=== PATIENT | female | born 1930 | race Hispanic/Latino ===

== ENCOUNTER 2019-04-29 10:52 | Emergency (ER) | payer OTHER ==
[~2019-04-29] VITALS: Ht 160 cm; Wt 66.2 kg
[~2019-04-29 10:52] MED LIST: ASPIR 8181 MG PO; KEFLEX500 MG PO; LEVOTHYROXINE50 MCG PO; NORVASC5 MG PO; PAXIL10 MG PO; PEPCID20 MG PO; PLAVIX75 MG PO; PRAVASTATIN SOD80 MG PO; TOPROL XL50 MG PO; TYLENOL325 MG PO; ULTRAM 50MG50 MG PO; [UNRECOGNIZED DRUG - REMARK]
--- OUTSIDE RECORDS SUMMARY | 2019-04-29 10:55 | XMS REPORT ---
Author Author [facility] Address Unknown Phone Unavailable Care Team Providers Care Catering Attendant Name Role Phone Unavailable Unavailable Problems This patient has no known problems. Allergies, Adverse Reactions, Alerts This patient has no known allergies or adverse reactions. Medications This patient has no known medications. Results Test Description Test Time Test Comments Text Results Atomic Results Result Comments XR Hand Complete 3+ Views Right 2018-07-04 06:26:14 Patient: JULIANNE LANCASTER Date/Time07/04/2018 05:54 CDTReason for ExamInjuryReportXR Hand Complete 3+ Views RightLocation:[id number] hours services provided 07/04/2018 6:23 AMIndication:InjuryComparison:None availableFindings:Narrowing of the first metacarpal joint is present consistent with degenerative osteoarthrosis. No acute fracture or dislocation is seen. Osteopenia is noted. No radiopaque foreign body.Impression: No acute fracture or dislocation. Final Dictated by: MD Maddox Dennis PDictated DT/TM: 07/04/2018 6:23 amSigned by: MD Maddox Dennis PSigned (Electronic Signature): 07/04/2018 6:26 am
--- OUTSIDE RECORDS SUMMARY | 2019-04-29 10:56 | XMS REPORT ---
Author Organization Unknown Address [address] [place] [address] Phone [phone] Care Team Providers Care [place] Cook Name Role Phone NATHALIE "HARJEET" LEONIDES STATON 3 [phone] RADHA EL 62 Unavailable PERCY PAVON MD 118 [phone] DANIELLE HOLLIDAY MD 82 [phone] JULIANNE BURT MD 111 [phone] Allergies Code Code System Name Reaction Severity Status Onset 2670 RxNorm Codeine Active 03/09/2016 Penicillins Active 03/09/2016 Sulfa (Sulfonamide Antibiotics) Active 03/09/2016 Medications Name Status Start Date Stop Date amlodipine 10 mg tablet Take 1 tablet every day by oral route. Active Not available Aspir-81 1 qd Completed 11/22/2017 Asprin Ec Low Dose 81 mg tablet,delayed release Take 1 tablet every day by oral route. Active Not available ciprofloxacin 250 mg tablet Completed 07/15/2016 clopidogrel 75 mg tablet Completed 09/09/2016 diclofenac 1 % topical gel Completed 09/09/2016 donepezil 10 mg tablet Completed 06/17/2017 donepezil 5 mg tablet Active Not available fluoxetine 10 mg capsule Completed 09/09/2016 furosemide 20 mg tablet TAKE 1 TABLET BY MOUTH ONCE DAILY Active Not available furosemide 40 mg tablet Completed 07/15/2016 gabapentin 300 mg capsule TAKE ONE CAPSULE BY MOUTH ONCE DAILY AT BEDTIME Active Not available hydralazine 100 mg tablet Completed 09/09/2016 hydrochlorothiazide 25 mg tablet Completed 09/09/2016 Kenalog 40 mg/mL suspension for injection Injected 2 cc intra-articularly into the R knee Completed 11/02/2016 levothyroxine 0.5mg Completed 06/17/2017 levothyroxine 50 mcg tablet Active Not available lidocaine 10 mg/mL (1 %) injection solution injected 1 cc intra-articularly in to the R knee Completed 11/02/2016 losartan 100 mg tablet Completed 09/09/2016 losartan 25 mg tablet Completed 09/09/2016 meclizine 25 mg tablet Completed 09/09/2016 megestrol 625 mg/5 mL oral suspension Take 5 mL every 24 hours by oral route for 30 days. Completed 09/05/2017 meloxicam 15 mg tablet Completed 07/14/2017 meloxicam 7.5 mg tablet Completed 09/05/2017 metoprolol succinate ER 25 mg tablet,extended release 24 hr Completed 09/09/2016 metoprolol succinate ER 50 mg tablet,extended release 24 hr Completed 09/09/2016 naproxen 500 mg tablet Completed 11/02/2016 ondansetron 4 mg disintegrating tablet Completed 06/17/2017 pantoprazole 40 mg tablet,delayed release Completed 09/09/2016 potassium chloride ER 20 mEq tablet,extended release(part/cryst) Active Not available pravastatin 20 mg tablet Take 1 tablet every day by oral route. Active Not available sertraline 25 mg tablet Completed 11/22/2017 sertraline 50 mg tablet Take 1 tablet every day by oral route for 30 days. Completed 09/06/2017 tramadol 50 mg tablet Active Not available triamcinolone 0.1 % topical ointment and dimethicone 5 % topical cream Completed 06/17/2017 triamcinolone acetonide 0.1 % topical cream Completed 05/04/2017 Tylenol Arthritis Pain 650 mg tablet,extended release Take 2 tablets every 8 hours by oral route for 10 days. Completed 04/28/2017 Vitamin D2 50,000 unit capsule Take 1 capsule every week by oral route. Completed 11/22/2017 Vitamin D3 1,000 unit tablet Take 1 tablet every day by oral route. 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 08/20/2015 History Long-term Current Use of Anticoagulant Unknown 08/20/2015 History Social Problem Not Due to a Mental Disorder Unknown 08/20/2015 History Clinical Finding Unknown 08/20/2015 History Chronic Kidney Disease Stage 5 Unknown 10/24/2015 History Hypertensive End Stage Renal Disease Unknown 11/24/2015 History 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 [address] [place] [id number] (Work Place) 07/14/2017 Bone Density, Dual Photon Absorptiometry [facility] ([facility] Imaging) [address] [place], [place] [id number] (Work Place) 09/05/2017 Electrocardiogram [facility] [address] [facility] [address] [place] [address] (Work Place) 12/30/2017 MRI, Shoulder, W/o Contrast [facility] ([facility]) [address] [place], [place] [id number] (Work Place) 12/30/2017 XR, Shoulder, 2 or More View [facility] ([facility]) [address] [place] [address] (Work Place) Notes: 03/09/2016: S/P appendectomy; Surgery Date: 40 years ago S/P Cholecystectomy; Surgery Date: 40 years ago S/P Oophorectomy; Surgery Date: 2001 S/P BENITO; Surgery Date: 1967 S/P shoulder surgery bilaterally; Surgery Date: pace maker; Surgery Date: 2012 Angioplasty Lower Extremities; Surgery Date: 2012 Lab Results Date Name Specimen Result Interpretation Description Value Range Status Address 09/05/2017 Prealbumin, Serum Normal Prealbumin 24 mg/dL 17-34 mg/dL Final [facility]: [address] [place] [address], [place] 09/05/2017 Carcinoembryonic Ag, Quant, Serum or Plasma Normal Cea 1.3 NG/mL see note: NG/mL Final [facility]: [address] [place] [address], [place] 09/05/2017 TSH, Serum or Plasma High Tsh 8.59 mIU/L 0.40-4.50 mIU/L Final [facility]: [address], [place] 09/05/2017 T4, Free, Serum Normal T4, Free 1.2 NG/dL 0.8-1.8 NG/dL Final [facility] [address] [facility]2017 Vitamin D, 25-Hydroxy, Total, Serum Low Vitamin D,25-Oh,total,ia 12 NG/mL 30-100 NG/mL Final [facility] [address] [facility]2017 CBC W/ Auto Diff Normal White Blood Cell Count 8.0 thousand/uL 3.8-10.8 thousand/uL Final [facility]: [address] Normal Red Blood Cell Count 4.57 million/uL 3.80-5.10 million/uL Final [facility]: [address] Normal Hemoglobin 13.3 g/dL 11.7-15.5 g/dL Final [facility]: [address] Whittington [address] Normal Hematocrit 41.3 % 35.0-45.0 % Final [facility]: [address] Wh[address] Normal Mcv 90.4 fL 80.0-100.0 fL Final [facility]: [address] Normal Mch 29.1 pg 27.0-33.0 pg Final [facility]: [address] Wh[address] Normal Mchc 32.2 g/dL 32.0-36.0 g/dL Final [facility]: [address] Wh[address] Normal Rdw 13.2 % 11.0-15.0 % Final [facility]: [address] Wh[address] Normal Platelet Count 168 thousand/uL 140-400 thousand/uL Final [facility]: [address] High Mpv 12.9 fL 7.5-12.5 fL Final [facility] [address] [facility] Absolute Neutrophils 5072 cells/uL 0446-4341 cells/uL Final [facility]: [address] Wh[address] Normal Absolute Lymphocytes 2272 cells/uL 850-3900 cells/uL Final [facility]: [address], [place] Normal Absolute Monocytes 480 cells/uL 200-950 cells/uL Final [facility]: [address], [place] Normal Absolute Eosinophils 112 cells/uL 15-500 cells/uL Final [facility]: [address] Valdivia [facility], [place] Normal Absolute Basophils 64 cells/uL 0-200 cells/uL Final [facility]: [address] [place] [address], [place] Normal Neutrophils 63.4 % Final [facility]: [address] [place] [address], [place] Normal Lymphocytes 28.4 % Final [facility]: [address] [place] [address], [place] Normal Monocytes 6.0 % Final [facility]: [address] [place] [address], [place] Normal Eosinophils 1.4 % Final [facility]: [address] [place] [address], [place] Normal Basophils 0.8 % Final [facility]: [address] 07/18/2017 TSH, Serum or Plasma High Tsh 4.84 mIU/L 0.40-4.50 mIU/L Final [facility]: [address] 07/18/2017 CMP, Serum or Plasma Normal Glucose 84 mg/dL 65-99 mg/dL Final [facility]: [address] Normal Urea Nitrogen (BUN) 24 mg/dL 7-25 mg/dL Final [facility]: [address] High Creatinine 1.44 mg/dL 0.60-0.88 mg/dL Final [facility]: [address] Low eGFR Non-afr. [place] 33 mL/min/1.73m2 > or=60 mL/min/1.73m2 Final [facility]: [address] Low eGFR 38 mL/min/1.73m2 > or=60 mL/min/1.73m2 Final [facility]: [address] Normal BUN/creatinine Ratio 17 (calc) 6-22 (calc) Final [facility]: [address] Normal Sodium 141 mmol/L 135-146 mmol/L Final [facility]: [address] Normal Potassium 4.6 mmol/L 3.5-5.3 mmol/L Final [facility]: [address] Normal Chloride 104 mmol/L 98-110 mmol/L Final [facility]: [address] Normal Carbon Dioxide 28 mmol/L 20-31 mmol/L Final [facility]: [address] Normal Calcium 9.9 mg/dL 8.6-10.4 mg/dL Final [facility]: [address]wani [address] Normal Protein, Total 7.1 g/dL 6.1-8.1 g/dL Final [facility]: [address] Normal Albumin 4.4 g/dL 3.6-5.1 g/dL Final [facility]: [address] Fwani [address] Normal Globulin 2.7 g/dL (calc) 1.9-3.7 g/dL (calc) Final [facility]: [address] Normal Albumin/globulin Ratio 1.6 (calc) 1.0-2.5 (calc) Final [facility]: [address] Normal Bilirubin, Total 0.6 mg/dL 0.2-1.2 mg/dL Final [facility]: [address] Normal Alkaline Phosphatase 85 U/L 33-130 U/L Final [facility]: [address] Normal Ast 24 U/L 10-35 U/L Final [facility]: [address] Normal Alt 13 U/L 6-29 U/L Final [facility]: [address] 07/18/2017 Prealbumin, Serum Normal Prealbumin 24 mg/dL 17-34 mg/dL Final [facility]: [address] 07/18/2017 T4, Free, Serum Normal T4, Free 1.2 NG/dL 0.8-1.8 NG/dL Final [facility]: [address] 07/18/2017 Lipid Panel, Serum Normal Cholesterol, Total 198 mg/dL <200 mg/dL Final [facility]: [address] Normal HDL Cholesterol 54 mg/dL >50 mg/dL Final [facility]: [address] High Triglycerides 172 mg/dL <150 mg/dL Final [facility]: [address] High LDL-cholesterol 115 mg/dL (calc) Final [facility]: [address] Normal Chol/hdlc Ratio 3.7 (calc) <5.0 (calc) Final [facility]: [address] High Non HDL Cholesterol 144 mg/dL (calc) <130 mg/dL (calc) Final [facility]: [address] 07/18/2017 PTH (Parathyroid Hormone), Intact, Serum or Plasma High Parathyroid Hormone, Intact 108 pg/mL 14-64 pg/mL Final [facility]: [address] 04/28/2017 T4, Total, Serum Normal T4 (Thyroxine), Total 6.8 mcg/dL 4.5-12.0 mcg/dL Final [facility]: [address] 04/28/2017 CBC W/ Auto Diff Normal White Blood Cell Count 8.4 thousand/uL 3.8-10.8 thousand/uL Final [facility]: [address] Normal Red Blood Cell Count 4.43 million/uL 3.80-5.10 million/uL Final [facility]: [address] Normal Hemoglobin 13.2 g/dL 11.7-15.5 g/dL Final [facility]: [address] Normal Hematocrit 40.1 % 35.0-45.0 % Final [facility]: [address] Normal Mcv 90.5 fL 80.0-100.0 fL Final [facility]: [address] Normal Mch 29.8 pg 27.0-33.0 pg Final [facility]: [address] Normal Mchc 32.9 g/dL 32.0-36.0 g/dL Final [facility]: [address] [place] Normal Rdw 13.1 % 11.0-15.0 % Final [facility]: [address] [place] Normal Platelet Count 176 thousand/uL 140-400 thousand/uL Final [facility]: [address] [place] High Mpv 13.0 fL 7.5-12.5 fL Final [facility]: [address] [place] Normal Absolute Neutrophils 5435 cells/uL 0025-3487 cells/uL Final [facility]: [address] [place] Normal Absolute Lymphocytes 2318 cells/uL 850-3900 cells/uL Final [facility]: [address] [place] Normal Absolute Monocytes 470 cells/uL 200-950 cells/uL Final [facility]: [address] [place] Normal Absolute Eosinophils 109 cells/uL 15-500 cells/uL Final [facility]: [address] [place] Normal Absolute Basophils 67 cells/uL 0-200 cells/uL Final [facility]: [address] [place] Normal Neutrophils 64.7 % Final [facility]: [address] [place] Normal Lymphocytes 27.6 % Final [facility]: [address] [place] Normal Monocytes 5.6 % Final [facility]: [address] [place] Normal Eosinophils 1.3 % Final [facility]: [address] [place] Normal Basophils 0.8 % Final [facility]: [address] [place] 04/28/2017 CMP, Serum or Plasma Normal Glucose 87 mg/dL 65-99 mg/dL Final [facility]: [address] [place] Normal Urea Nitrogen (BUN) 23 mg/dL 7-25 mg/dL Final [facility]: [address] [place] High Creatinine 1.58 mg/dL 0.60-0.88 mg/dL Final [facility]: [address] [place] Low eGFR Non-afr. [place] 30 mL/min/1.73m2 > or=60 mL/min/1.73m2 Final [facility]: [address] [place] Low eGFR 34 mL/min/1.73m2 > or=60 mL/min/1.73m2 Final [facility] [facility] B[facility]/creatinine Ratio 15 (calc) 6-22 (calc) Final [facility]: [address] [facility] Sodium 140 mmol/L 135-146 mmol/L Final [facility] [address] [facility] Normal Potassium 4.3 mmol/L 3.5-5.3 mmol/L Final [facility]: [address] [facility] Normal Chloride 103 mmol/L 98-110 mmol/L Final [facility]: [address] [facility] Normal Carbon Dioxide 29 mmol/L 20-31 mmol/L Final [facility] [address] [facility] Normal Calcium 10.1 mg/dL 8.6-10.4 mg/dL Final [facility]: [address] [facility] Normal Protein, Total 7.1 g/dL 6.1-8.1 g/dL Final [facility] [address] [facility] Normal Albumin 4.5 g/dL 3.6-5.1 g/dL Final [facility] [address] [facility] Normal Globulin 2.6 g/dL (calc) 1.9-3.7 g/dL (calc) Final [facility] [address] [facility] Normal Albumin/globulin Ratio 1.7 (calc) 1.0-2.5 (calc) Final [facility]: [address] [facility] Normal Bilirubin, Total 0.4 mg/dL 0.2-1.2 mg/dL Final [facility] [address] [facility] Normal Alkaline Phosphatase 65 U/L 33-130 U/L Final [facility] [address] [facility] Normal Ast 21 U/L 10-35 U/L Final [facility]: [address] [facility] Normal Alt 12 U/L 6-29 U/L Final [facility]: [address] [place] [address], [place] 04/28/2017 TSH, Serum or Plasma Normal Tsh 3.68 mIU/L 0.40-4.50 mIU/L Final [facility]: [address] [place] [address], [place] 04/28/2017 Lipid Panel, Serum Normal Cholesterol, Total 174 mg/dL 125- 200 mg/dL Final [facility]: [address] Normal HDL Cholesterol 54 mg/dL > or=46 mg/dL Final [facility]: [address] High Triglycerides 244 mg/dL <150 mg/dL Final [facility]: [address] Normal LDL-cholesterol 71 mg/dL (calc) <130 mg/dL (calc) Final [facility]: [address] Normal Chol/hdlc Ratio 3.2 (calc) < or=5.0 (calc) Final [facility]: [address] Normal Non HDL Cholesterol 120 mg/dL (calc) Final [facility]: [address] [place] [address], [place] 04/28/2017 PTH (Parathyroid Hormone), Intact, Serum or Plasma High Parathyroid Hormone, Intact 81 pg/mL 14-64 pg/mL Final [facility]: [address] [place] [address], [place] Electrocardiogram Rate & Rhythm [facility]: [address] [facility] [address], [place] [facility] [place]: [address] [facility] [address], [place] Interval [facility]: [address] [facility] [address], [place] Q[place] Duration [facility] [place]: [address] [facility] [address], [place] Interval [facility] [place]: [address] [facility] [address], [place] Electrocardiogram Rate & Rhythm [facility]: [address] [facility] [address], [place] [facility] [place]: [address] [facility] [address], [place] Inter[place] [facility] [place]: [address] [facility] [address], [place] Q[place] Duration [facility] [place]: [address] [facility] [address], [place] Interval [facility]: [address] [facility] [address], [place] Past Encounters 12/30/2017 Pain of Right Shoulder Joint; Benign Hypertensive Renal Disease; Chronic Kidney Disease Stage 3; Hyperparathyroidism Due to Renal Insufficiency Nathalie Razo MD: [address] [facility] [address], [place] [address], Ph. 11/22/2017 Benign Hypertensive Renal Disease; Cardiac Pacemaker in Situ; Chronic Kidney Disease Stage 3; Localized, Primary Osteoarthritis; Vitamin D Deficiency; Atherosclerosis of Aorta; Recurrent Major Depression in Full Remission; Hypothyroidism; Low Back Pain; Mixed Hyperlipidemia; Idiopathic Peripheral Neuropathy Nathalie Razo MD: [address] [facility], [place] [address], [place] [address], Ph. 09/05/2017 Unexplained Weight Loss; Chest Pain; Vitamin D Deficiency; Hypothyroidism; Moderate Major Depression, Single Episode; Dementia LIZBETH Reilly: [address] [address], Ph. 07/14/2017 Adult Health Examination; Body Mass Index 20-24 - Normal; Benign Hypertensive Renal Disease; Cardiac Pacemaker in Situ; Dementia; Chronic Kidney Disease Stage 3; Hypothyroidism; Pure Hypercholesterolemia; Low Back Pain; Advance Directive Discussed with Patient; Depression Screening; Immunization; Postmenopausal State; At Risk for Falls; Pain in Right Knee SHAHLA Perea: [address] [address], Ph. 07/06/2017 Localized, Primary Osteoarthritis; Hypertensive Heart and Renal Disease Neelima Rogers: [address] [address], Ph. 06/17/2017 Moderate Major Depression, Single Episode; Loss of Appetite; Atherosclerosis of Aorta SHAHLA Perea: [address] [facility], [address] [address], Ph. 05/04/2017 Follow-up Visit; Nausea; Dementia LIZBETH Reilly: [address] [address], Ph. 05/04/2017 Radha Razo: [address] [address], Ph. 05/02/2017 Radha El: [address] [facility] [address], [place] [address], Ph. 04/28/2017 Benign Hypertensive Renal Disease; Chronic Kidney Disease Stage 3; Hypothyroidism; Pure Hypercholesterolemia; Localized, Primary Osteoarthritis; Atopic Dermatitis; Dementia Adrienne Rivas, PRICING SUPERVISOR: [address] [facility], [facility] [address], [place] [address], Ph. 04/01/2017 Localized, Primary Osteoarthritis; Hypertensive Heart and Renal Disease Cassaine El: [address] [facility], [place] [address], [place] [address], Ph. 02/21/2017 Localized, Primary Osteoarthritis LIZBETH Reilly: [address] [facility], [place] [address], [place] [address], Ph. 01/27/2017 Edema of Lower Extremity; Diabetic Neuropathy LIZBETH Reilly: [address] [facility], [place] [address], [place] [address], Ph. 01/13/2017 Cassaine El: [address] [facility], [address] [address], Ph. 12/13/2016 Chest Pain; Benign Paroxysmal Positional Vertigo; Pain in Right Knee Nathalie Razo MD: [address] [facility], [place] [address], [place] [address], Ph. 12/03/2016 Localized, Primary Osteoarthritis; Hypertensive Heart and Renal Disease Cassaine El: [address] [facility], [place] [address], [place] [address], Ph. 11/02/2016 Frontal Headache; Localized, Primary Osteoarthritis LIZBETH Reilly: [address] [facility], [place] [address], [place] [address], Ph. 11/01/2016 Hypertensive Heart Disease; Localized, Primary Osteoarthritis Cassaine El: [address] [facility], [address] [address], Ph. 10/06/2016 Cassaine El: [address] [facility], [address], [place] [address], Ph. 09/09/2016 Localized, Primary Osteoarthritis LIZBETH Reilly: [address] [facility] [address], [place] [address], Ph. 09/06/2016 Hypertensive End Stage Renal Disease; Chronic Kidney Disease Stage 5 Yandel Greer: [address] [facility], [facility] [address], [place] [address], Ph. 08/05/2016 Radha Razo: [address] [facility], [address], [place] [address], Ph. 07/15/2016 Pain in Right Knee; Immunization SHAHLA Perea: [address] [facility] [address], [place] [address], Ph. Social History Smoking Status Never Smoker Vaccine List Vaccine Type influenza, high dose seasonal 07/15/20160.5 mL 07/14/20170.5 mL influenza, injectable, quadrivalent 07/17/2015 influenza, seasonal, injectable, preservative free 06/14/2014 pneumococcal conjugate PCV 13 07/14/20170.5 mL pneumococcal polysaccharide PPV23 11/27/2010 Tdap 02/12/2009 Notes: 09/03/2015: phenergan (09/03/2015) B12 INJECTION (08/20/2015) Plan of Care Patient Instructions It was good to see you in the office today for your Medicare Annual Wellness Visit. You have been provided some information on healthy nutrition, including a diet rich in fruits and vegetables, minimizing simple carbohydrates, salt, and saturated fats. I want to encourage regular cardiovascular exercise such as walking at least 30 minutes daily, 5 times per week. Please remember to schedule any preventive health measures that we talked about today. You have also been provided education on fall prevention and community- based lifestyle interventions to help reduce health risks and promote healthy living in your [employer] folder. Screening Recommendations 1. Vaccines Pneumococcal: discussed today and information sent with patient in their [employer] [facility] folder Influenza: discussed today and information sent with patient in their [facility] [facility] [facility] folder Shingles: discussed today and information sent with patient in their [employer] [facility] folder Tetanus: discussed today and information sent with patient in their [employer] [facility] [facility] folder 2. Mammography Screening: discussed today and information sent with patient in their [facility] [facility] [facility] folder 3. Colorectal cancer Screening Colonoscopy: discussed today and information sent with patient in their [employer] [facility] [facility] folder Fecal Occult Blood: discussed today and information sent with patient in their [employer] [facility] [facility] folder 4. Bone Mass Measurement: discussed today 5. Pap test / Pelvic Exam Screening: discussed today 6. Eye Exam Screening: discussed today 7. Cholesterol Screening: discussed today 8. Diabetes Screening: discussed today Problem:The patient has a diagnosis of Hypertension Goal:The patients condition will be managed in the outpatient setting and blood pressure will be within normal limits. Interventions: -Encourage patient to take medication as prescribed. -Encourage patient to decrease sodium intake and limit processed foods and caffeinated drinks. -Encourage patient to monitor blood pressure and keep a log with readings. Bring readings to next scheduled appointment. -Encourage pt to exercise regularly 3-5 times a week for 30 min, unless the patients activity is restricted by the provider. Educate to stay at a healthy weight. Losing weight can lower your blood pressure -Educate patient that hypertension usually has no symptoms but some people may experience the following symptoms: blurred vision, fatigue, nose bleeds, chest pain, and swooshing sound in ears. -Encouraged frequent visit to nearest pharmacy for BP check if pt doesn't have a bp monitor, discussed goal of <140/90 Problem: The patient c/o pain to knees due to OA Goal: The patients condition will be managed in the outpatient setting to relieve pain Interventions: - discuss specialist referral or PT w/ pcp - Stay active but avoid activities that cause pain. - maintain a healthy weight -Use heat or ice on your joints as directed. Use a heating pad on a low setting or take a warm bath. Use an ice pack, or put crushed ice in a plastic bag. Cover it with a towel. -Massage the muscles around the joint to relieve pain and stiffness. -Use a cane, crutches, or a walker to protect and relieve pressure on your ankle, knee, and hip joints. - -Wear flat or low-heeled shoes - Contact pcp or cm to report: severe pain, cannot move joint, have a fever, joint is red & tender. Problem:The patient has a diagnosis of Hypertension Goal:The patients condition will be managed in the outpatient setting and blood pressure will be within normal limits. Interventions: -Encourage patient to take medication as prescribed. -Encourage patient to decrease sodium intake and limit processed foods and caffeinated drinks. -Encourage patient to monitor blood pressure and keep a log with readings. Bring readings to next scheduled appointment. -Encourage pt to exercise regularly 3-5 times a week for 30 min, unless the patients activity is restricted by the provider. Educate to stay at a healthy weight. Losing weight can lower your blood pressure -Educate patient that hypertension usually has no symptoms but some people may experience the following symptoms: blurred vision, fatigue, nose bleeds, chest pain, and swooshing sound in ears. -Encouraged frequent visit to nearest pharmacy for BP check if pt doesn't have a bp monitor, discussed goal of <140/90 Problem: The patient c/o pain to knees due to OA Goal: The patients condition will be managed in the outpatient setting to relieve pain Interventions: - discuss specialist referral or PT w/ pcp - Stay active but avoid activities that cause pain. - maintain a healthy weight -Use heat or ice on your joints as directed. Use a heating pad on a low setting or take a warm bath. Use an ice pack, or put crushed ice in a plastic bag. Cover it with a towel. -Massage the muscles around the joint to relieve pain and stiffness. -Use a cane, crutches, or a walker to protect and relieve pressure on your ankle, knee, and hip joints. - -Wear flat or low-heeled shoes - Contact pcp or cm to report: severe pain, cannot move joint, have a fever, joint is red & tender. Problem:The patient has a diagnosis of Hypertension Goal:The patients condition will be managed in the outpatient setting and blood pressure will be within normal limits. Interventions: -Encourage patient to take medication as prescribed. -Encourage patient to decrease sodium intake and limit processed foods and caffeinated drinks. -Encourage patient to monitor blood pressure and keep a log with readings. Bring readings to next scheduled appointment. -Encourage pt to exercise regularly 3-5 times a week for 30 min, unless the patients activity is restricted by the provider. Educate to stay at a healthy weight. Losing weight can lower your blood pressure -Educate patient that hypertension usually has no symptoms but some people may experience the following symptoms: blurred vision, fatigue, nose bleeds, chest pain, and swooshing sound in ears. -Encouraged frequent visit to nearest pharmacy for BP check if pt doesn't have a bp monitor, discussed goal of <140/90 Problem: The patient c/o pain to knees due to OA Goal: The patients condition will be managed in the outpatient setting to relieve pain Interventions: - discuss specialist referral or PT w/ pcp - Stay active but avoid activities that cause pain. - maintain a healthy weight -Use heat or ice on your joints as directed. Use a heating pad on a low setting or take a warm bath. Use an ice pack, or put crushed ice in a plastic bag. Cover it with a towel. -Massage the muscles around the joint to relieve pain and stiffness. -Use a cane, crutches, or a walker to protect and relieve pressure on your ankle, knee, and hip joints. - -Wear flat or low-heeled shoes - Contact pcp or cm to report: severe pain, cannot move joint, have a fever, joint is red & tender. Problem:The patient has a diagnosis of Hypertension Goal:The patients condition will be managed in the outpatient setting and blood pressure will be within normal limits. Interventions: -Encourage patient to take medication as prescribed. -Encourage patient to decrease sodium intake and limit processed foods and caffeinated drinks. -Encourage patient to monitor blood pressure and keep a log with readings. Bring readings to next scheduled appointment. -Encourage pt to exercise regularly 3-5 times a week for 30 min, unless the patients activity is restricted by the provider. Educate to stay at a healthy weight. Losing weight can lower your blood pressure -Educate patient that hypertension usually has no symptoms but some people may experience the following symptoms: blurred vision, fatigue, nose bleeds, chest pain, and swooshing sound in ears. -Encouraged frequent visit to nearest pharmacy for BP check if pt doesn't have a bp monitor, discussed goal of <140/90 Called patient on [phone] and LVM to return call to office, called [phone] and was hung up on multiple times. Reminders Provider Appointments None recorded. Lab None recorded. Referral None recorded. Procedures None recorded. Surgeries None recorded. Imaging None recorded. Vitals 12/30/2017 08:30AM Est Patient Height Weight BMI Blood Pressure 5 ft 0.5 in 127 lbs 24.4 kg/m2 155/78 mm[Hg] 11/22/2017 10:45AM Est Patient Height Weight BMI Blood Pressure 5 ft 0.5 in 126 lbs 24.2 kg/m2 (1) 149/72 mm[Hg] (2) 150/71 mm[Hg] 09/05/2017 02:30PM Est Patient Height Weight BMI Blood Pressure 5 ft 0.5 in 124.6 lbs 23.9 kg/m2 150/70 mm[Hg] 07/14/2017 09:30AM AWV Height Weight BMI Blood Pressure 5 ft 0.5 in 128.4 lbs 24.7 kg/m2 158/83 mm[Hg] 06/17/2017 09:15AM Est Patient Height Weight BMI Blood Pressure 5 ft 0.5 in 133 lbs 25.5 kg/m2 (1) 165/84 mm[Hg] (2) 155/79 mm[Hg] 05/04/2017 01:45PM Est Patient Height Weight BMI Blood Pressure 5 ft 0.5 in 134 lbs 25.7 kg/m2 135/80 mm[Hg] 04/28/2017 11:00AM Est Patient Height Weight BMI Blood Pressure 5 ft 0.5 in 137.6 lbs 26.4 kg/m2 130/81 mm[Hg] 02/21/2017 08:15AM Est Patient Height Weight BMI Blood Pressure 5 ft 0.5 in 143 lbs 27.5 kg/m2 162/92 mm[Hg] 01/27/2017 03:00PM Est Patient Height Weight BMI Blood Pressure 5 ft 0.5 in 150 lbs 28.8 kg/m2 145/70 mm[Hg] 12/13/2016 09:30AM Work In Same Day Height Weight BMI Blood Pressure 5 ft 0.5 in 144 lbs 27.7 kg/m2 158/76 mm[Hg] 11/02/2016 01:30PM Est Patient Height Weight BMI Blood Pressure 5 ft 0.5 in 146.8 lbs 28.2 kg/m2 143/72 mm[Hg] 09/09/2016 02:30PM Est Patient Height Weight BMI Blood Pressure 5 ft 0.5 in 147 lbs 28.2 kg/m2 150/78 mm[Hg] 07/15/2016 11:00AM Est Patient Height Weight BMI Blood Pressure 5 ft 0.5 in 145 lbs 27.9 kg/m2 110/70 mm[Hg] 03/29/2016 Height Weight BMI Blood Pressure 5 ft 0.5 in 147.2 lbs 28.27 kg/m2 162/69 mm[Hg] 03/09/2016 Blood Pressure 140/64 mm[Hg] 03/09/2016 Height Weight BMI 5 ft 0.5 in 144.8 lbs 27.81 kg/m2 02/17/2016 Height Weight BMI Blood Pressure 5 ft 0.5 in 149.6 lbs 28.73 kg/m2 157/64 mm[Hg] 01/21/2016 Height Weight BMI Blood Pressure 5 ft 0.5 in 145.6 lbs 27.96 kg/m2 194/78 mm[Hg] 12/05/2015 Height Weight BMI Blood Pressure 5 ft 0.5 in 145 lbs 27.85 kg/m2 106/62 mm[Hg] 11/24/2015 Height Weight BMI Blood Pressure 5 ft 0.5 in 139.4 lbs 26.77 kg/m2 100/64 mm[Hg] 11/20/2015 Height Weight Blood Pressure 5 ft 0.5 in 141.2 lbs 133/68 mm[Hg] 11/20/2015 BMI 27.12 kg/m2 10/17/2015 Height Weight BMI Blood Pressure 5 ft 0.5 in 145 lbs 27.85 kg/m2 134/80 mm[Hg] 09/11/2015 Height Weight BMI Blood Pressure 5 ft 0.5 in 150.4 lbs 28.89 kg/m2 130/80 mm[Hg] 09/03/2015 Height Weight BMI Blood Pressure 5 ft 0.5 in 148 lbs 28.43 kg/m2 124/86 mm[Hg] 08/20/2015 Height Weight BMI Blood Pressure 5 ft 0.5 in 152 lbs 29.19 kg/m2 130/82 mm[Hg] 07/17/2015 Height Weight BMI Blood Pressure 5 ft 0.5 in 155 lbs 29.77 kg/m2 124/70 mm[Hg] 06/12/2015 Height Weight BMI Blood Pressure 5 ft 0.5 in 159.6 lbs 30.65 kg/m2 118/68 mm[Hg] 05/22/2015 Height Weight BMI Blood Pressure 5 ft 0.5 in 158 lbs 30.35 kg/m2 124/80 mm[Hg] 04/21/2015 Height Weight BMI Blood Pressure 5 ft 0.5 in 162.6 lbs 31.23 kg/m2 133/72 mm[Hg] 03/17/2015 Height Weight BMI Blood Pressure 5 ft 0.5 in 154.2 lbs 29.62 kg/m2 134/80 mm[Hg] 01/30/2015 Height Weight BMI Blood Pressure 5 ft 0.5 in 152.6 lbs 29.31 kg/m2 160/70 mm[Hg] 12/24/2014 Height Weight BMI Blood Pressure 5 ft 0.5 in 152.4 lbs 29.27 kg/m2 150/80 mm[Hg] 12/11/2014 Height Weight BMI Blood Pressure 5 ft 0.5 in 152.6 lbs 29.31 kg/m2 140/80 mm[Hg] 11/26/2014 Height Weight BMI Blood Pressure 5 ft 0.5 in 151.4 lbs 29.08 kg/m2 132/80 mm[Hg] 10/23/2014 Height Weight BMI Blood Pressure 5 ft 0.5 in 153 lbs 29.39 kg/m2 130/82 mm[Hg] 09/27/2014 Height Weight BMI Blood Pressure 5 ft 0.5 in 150.6 lbs 28.92 kg/m2 130/80 mm[Hg] 09/24/2014 Height Weight BMI Blood Pressure 5 ft 0.5 in 149 lbs 28.62 kg/m2 120/78 mm[Hg] 08/28/2014 Height Weight BMI Blood Pressure 5 ft 0.5 in 147.6 lbs 28.35 kg/m2 160/80 mm[Hg] 08/09/2014 Height Weight BMI Blood Pressure 5 ft 0.5 in 150.4 lbs 28.89 kg/m2 130/80 mm[Hg] 07/17/2014 Height Weight BMI Blood Pressure 5 ft 0.5 in 149.8 lbs 28.77 kg/m2 120/80 mm[Hg] 07/05/2014 Height Weight BMI Blood Pressure 5 ft 0.5 in 149.8 lbs 28.77 kg/m2 138/82 mm[Hg] 06/14/2014 Height Weight 5 ft 0.5 in 149.2 lbs 05/17/2014 Height Weight 5 ft 0.5 in 146 lbs 04/26/2014 Height Weight 5 ft 0.5 in 145.4 lbs 04/03/2014 Height Weight 5 ft 0.5 in 146.8 lbs 03/19/2014 Height Weight 5 ft 0.5 in 144.2 lbs 02/13/2014 Height Weight 5 ft 0.5 in 145.6 lbs 01/09/2014 Height 5 ft 0.5 in 01/09/2014 Weight 145.6 lbs 11/30/2013 Height Weight 5 ft 0.5 in 143 lbs 10/19/2013 Height 5 ft 0.5 in 10/19/2013 Weight 143 lbs 10/05/2013 Height Weight 5 ft 0.5 in 139.5 lbs 09/10/2013 Height Weight 5 ft 0.5 in 146.6 lbs 08/21/2013 Height Weight 5 ft 0.5 in 146.4 lbs 07/13/2013 Height Weight 5 ft 0.5 in 148.4 lbs 06/27/2013 Height Weight 5 ft 0.5 in 149 lbs 06/18/2013 Height Weight 5 ft 0.5 in 147.8 lbs 04/26/2013 Height Weight 5 ft 0.5 in 147.6 lbs 04/19/2013 Height Weight 5 ft 0.5 in 148.4 lbs 04/05/2013 Height Weight 5 ft 0.5 in 148.8 lbs 02/28/2013 Height Weight 5 ft 0.5 in 147.6 lbs 02/07/2013 Height Weight 5 ft 0.5 in 147.6 lbs 01/31/2013 Height Weight 5 ft 0.5 in 144.5 lbs 01/29/2013 Height Weight 5 ft 0.5 in 145.2 lbs 01/16/2013 Height Weight 5 ft 0.5 in 145.2 lbs 12/11/2012 Height Weight 5 ft 0.5 in 141 lbs 11/10/2012 Height Weight 5 ft 0.5 in 138 lbs 10/25/2012 Height Weight 5 ft 0.5 in 139.5 lbs 10/17/2012 Height Weight 5 ft 0.5 in 139.5 lbs 09/21/2012 Height Weight 5 ft 0.5 in 145.4 lbs 09/11/2012 Height Weight 5 ft 0.5 in 142.2 lbs 08/01/2012 Height Weight 5 ft 0.5 in 143 lbs 06/30/2012 Height Weight 5 ft 0.5 in 145.4 lbs 06/05/2012 Height Weight 5 ft 0.5 in 145.8 lbs 05/15/2012 Height Weight 5 ft 0.5 in 150.6 lbs 05/01/2012 Height Weight 5 ft 0.5 in 149.6 lbs 03/13/2012 Height Weight 5 ft 0.5 in 150.8 lbs 03/08/2012 Height Weight 5 ft 0.5 in 152.2 lbs 02/15/2012 Height Weight 5 ft 0.5 in 147 lbs 02/07/2012 Height Weight 5 ft 0.5 in 146 lbs 01/26/2012 Height Weight 5 ft 0.5 in 149.6 lbs 01/06/2012 Height Weight 5 ft 0.5 in 148.4 lbs 12/06/2011 Height Weight 5 ft 0.5 in 150 lbs 11/24/2011 Height Weight 5 ft 0.5 in 151.8 lbs 09/22/2011 Height Weight 5 ft 0.5 in 149.4 lbs 09/07/2011 Height Weight 5 ft 0.5 in 147.6 lbs 08/05/2011 Height Weight 5 ft 0.5 in 145.6 lbs 07/27/2011 Height Weight 5 ft 0.5 in 146.6 lbs 07/09/2011 Height Weight 5 ft 0.5 in 148.4 lbs 07/06/2011 Height Weight 5 ft 0.5 in 147.6 lbs 06/04/2011 Height Weight 5 ft 0.5 in 144.2 lbs 06/02/2011 Height Weight 5 ft 0.5 in 144.2 lbs 05/19/2011 Height Weight 5 ft 0.5 in 143.4 lbs 05/13/2011 Height Weight 5 ft 0.5 in 143.6 lbs 03/30/2011 Height Weight 5 ft 0.5 in 144.2 lbs 03/05/2011 Height Weight 5 ft 0.5 in 144.6 lbs 02/05/2011 Height Weight 5 ft 0.5 in 143 lbs 01/20/2011 Height Weight 5 ft 0.5 in 145 lbs 01/04/2011 Height Weight 5 ft 0.5 in 145 lbs 11/30/2010 Height Weight 5 ft 0.5 in 143 lbs 11/27/2010 Height Weight 5 ft 0.5 in 143 lbs 10/13/2010 Height Weight 5 ft 0.5 in 142.8 lbs 10/01/2010 Height Weight 5 ft 0.5 in 143.8 lbs 09/28/2010 Height Weight 5 ft 0.5 in 143 lbs 09/11/2010 Height Weight 5 ft 0.5 in 143.4 lbs 08/27/2010 Height Weight 5 ft 0.5 in 146.2 lbs 08/26/2010 Height Weight 5 ft 0.5 in 146.2 lbs 08/21/2010 Height Weight 5 ft 0.5 in 146.2 lbs 07/22/2010 Height Weight 5 ft 0.5 in 148 lbs 05/19/2010 Height Weight 5 ft 0.5 in 145 lbs 05/13/2010 Height Weight 5 ft 0.5 in 145 lbs 04/22/2010 Height Weight 5 ft 0.5 in 145 lbs 04/14/2010 Height Weight 5 ft 0.5 in 146.8 lbs 03/16/2010 Weight 145.2 lbs 03/05/2010 Weight 145.8 lbs 01/27/2010 Weight 149 lbs 01/21/2010 Weight 149 lbs 12/11/2009 Weight 148 lbs 11/05/2009 Weight 154 lbs 09/17/2009 Weight 152 lbs 09/11/2009 Weight 151 lbs 08/20/2009 Weight 156 lbs 08/05/2009 Weight 156 lbs 07/21/2009 Weight 157 lbs 06/25/2009 Weight 154 lbs 06/02/2009 Height Weight 5 ft 2 in 156 lbs 04/11/2009 Weight 161 lbs 04/04/2009 Height Weight 5 ft 1.5 in 160 lbs 03/07/2009 Weight 156 lbs 02/12/2009 Height Weight 5 ft 2 in 154 lbs 01/22/2009 Height Weight 5 ft 1 in 152 lbs 12/09/2008 Weight 152 lbs 11/28/2008 Weight 159 lbs 11/06/2008 Weight 152 lbs
--- NOTE | 2019-04-29 11:56 | Diagnostic Imaging Report ---
EXAMINATION: CHEST 2 VIEWS INDICATION: ^FALL, ANTERIOR CONTUSION COMPARISON: None FINDINGS: PA and lateral views TUBES and LINES: 2-lead pacemaker device overlying the left chest with leads overlying the right atrium and right ventricle. LUNGS: Lungs are well inflated. Bilateral apical pleuroparenchymal scarring. Subsegmental atelectasis in both lung bases. There is no evidence of pneumonia or pulmonary edema. PLEURA: No pleural effusion or pneumothorax. HEART AND MEDIASTINUM: The cardiomediastinal silhouette is unremarkable. BONES AND SOFT TISSUES: Mild multilevel degenerative changes of the thoracic spine. Surgical screw overlying the right humeral head. Soft tissues are unremarkable. UPPER ABDOMEN: No free air under the diaphragm. Cholecystectomy clips overlying the right upper quadrant. IMPRESSION: No acute thoracic abnormality. Signed by: Dr. Ana Camargo M.D. on 04/29/2019 11:52 AM
[2019-05-30] MEDS ORDERED: POTASSIUM CHLO20 ME1 PO (15:33)
[2019-05-30] MEDS ORDERED: ARICEPT5 MG PO (15:33)
[2019-05-30] MEDS ORDERED: GABAPENTIN300 MG PO (15:33)
[2019-05-30] MEDS ORDERED: FUROSEMIDE40 MG PO (15:33)
== END 2019-04-29 13:06 | disposition home or self-care (01) ==
LOC: ER 10:52
DX: S50.812A Abrasion of left forearm, initial encounter (principal); S50.12XA Contusion of left forearm, initial encounter; S20.219A Contusion of unspecified front wall of thorax, initial encounter; S40.022A Contusion of left upper arm, initial encounter; W01.0XXA Fall on same level from slipping, tripping and stumbling without subsequent striking against object, initial encounter; Y92.008 Other place in unspecified non-institutional (private) residence as the place of occurrence of the external cause
CPT/HCPCS: 71046; 99283

== ENCOUNTER → 2019-05-30 | Outpatient (CLI) | payer MEDICARE, OTHER ==
[~2019-05-30] MED LIST changes: +ARICEPT5 MG PO; +FUROSEMIDE40 MG PO; +GABAPENTIN300 MG PO; +POTASSIUM CHLO20 ME1 PO
[2019-05-30 16:22] LABS: BASOPHILS # (AUTO) 0.1 (0.0-0.1); BASOPHILS % 0.6 % (0.0-1.0); EOSINOPHILS # (AUTO) 0.1 (0.0-0.4); EOSINOPHILS % 0.8 % (0.0-6.0); HEMATOCRIT 36.9 % (34.2-44.1); HEMOGLOBIN 11.5 g/dL (12.0-16.0); LYMPHOCYTES # (AUTO) 3.2 (1.0-3.2); LYMPHOCYTES % 24.1 % (18.0-39.1); MEAN CORPUSCULAR HEMOGLOBIN 29.6 pg (28-32); MEAN CORPUSCULAR HGB CONC 31.2 g/dL (31-35); MEAN CORPUSCULAR VOLUME 94.9 fL (81-99); MONOCYTES # (AUTO) 1.2 (0.2-0.8); MONOCYTES % 9.3 % (4.4-11.3); NEUTROPHILS # (AUTO) 8.4 (2.1-6.9); NEUTROPHILS % 63.9 % (38.7-80.0); PLATELET COUNT 200 x10e3/uL (140-360); RED BLOOD COUNT 3.89 x10e6/uL (3.6-5.1); RED CELL DISTRIBUTION WIDTH 14.4 % (11.7-14.4)
[2019-05-30 16:40] LABS: ANION GAP 14.7 mmol/L (8-16); CALCIUM 10.2 mg/dL (8.4-10.2); CREATININE, SERUM 1.58 mg/dL (0.57-1.11); POTASSIUM 4.7 mmol/L (3.5-5.1)
--- NOTE | 2019-05-30 17:14 | Diagnostic Imaging Report ---
Chest, 2 views, 05/30/2019. History: Preop, left wrist surgery. Comparison: 04/29/2019. Findings: The cardiomediastinal silhouette and pulmonary vasculature are within normal limits. There is biapical pleural thickening and right upper lobe scarring. The lungs are clear without evidence of consolidation or pleural effusion. Left subclavian dual-lead pacer is unchanged in position. Degenerative changes are present within the thoracic spine. Surgical screw is noted within the right humeral head. There are no acute osseous or soft tissue abnormalities. Impression: No acute cardiopulmonary abnormality. Signed by: Hieu Middleton on 05/30/2019 5:11 PM
== END ==
LOC: RAD 05:00 → EDSTATUS 06-04 10:00
PROVIDERS: ATTEND Specialist
DX: Z01.818 Encounter for other preprocedural examination (principal); S62.102A Fracture of unspecified carpal bone, left wrist, initial encounter for closed fracture; Z53.8 Procedure and treatment not carried out for other reasons
CPT/HCPCS: 36415; 71046; 80048; 85025; 93005

== ENCOUNTER 2019-06-03 12:56 | Inpatient (IN) | payer MEDICARE, OTHER ==
[~2019-06-03] VITALS: Ht 160 cm; Wt 59.5 kg
[2019-06-03] MEDS: SODIUM CHLORIDE 0.9% 1000ML 1,000 ML IV SCH
[2019-06-03] MEDS ORDERED: TRAMADOL HCL 50 MG TAB PO ONE (13:30)
--- NOTE | 2019-06-03 14:00 | NUR ---
PAIN MEDS GIVEN PER DR'S ORDERS AND PT HAS TOLERATED WELL.
--- NOTE | 2019-06-03 14:18 | NUR ---
PT/FAMILY INFORMED OF NEED FOR URINE SAMPLE
[2019-06-03 14:21] LABS: BASOPHILS # (AUTO) 0.1 (0.0-0.1); BASOPHILS % 0.4 % (0.0-1.0); EOSINOPHILS # (AUTO) 0.1 (0.0-0.4); EOSINOPHILS % 0.9 % (0.0-6.0); HEMOGLOBIN 10.9 g/dL (12.0-16.0); LYMPHOCYTES # (AUTO) 2.3 (1.0-3.2); LYMPHOCYTES % 17.6 % (18.0-39.1); MEAN CORPUSCULAR HEMOGLOBIN 30.4 pg (28-32); MEAN CORPUSCULAR HGB CONC 32.1 g/dL (31-35); MEAN CORPUSCULAR VOLUME 94.7 fL (81-99); MONOCYTES % 7.9 % (4.4-11.3); NEUTROPHILS # (AUTO) 9.3 (2.1-6.9); PLATELET COUNT 227 x10e3/uL (140-360); RED BLOOD COUNT 3.59 x10e6/uL (3.6-5.1); RED CELL DISTRIBUTION WIDTH 13.8 % (11.7-14.4)
[2019-06-03 14:28] LABS: INR 0.92; PARTIAL THROMBOPLASTIN TIME 30.3 seconds (23.8-35.5); PROTHROMBIN TIME 12.9 seconds (11.9-14.5)
[2019-06-03 14:37] LABS: ALBUMIN 3.4 g/dL (3.5-5.0); ALBUMIN/GLOBULIN RATIO 0.9 (0.8-2.0); ANION GAP 15.6 mmol/L (8-16); CALCIUM 9.6 mg/dL (8.4-10.2); CREATININE, SERUM 1.57 mg/dL (0.57-1.11); POTASSIUM 4.6 mmol/L (3.5-5.1)
[2019-06-03 14:44] LABS: CREATINE KINASE MB 0.5 ng/mL (0-5.0)
--- NOTE | 2019-06-03 15:13 | Diagnostic Imaging Report ---
Examination: Single AP view of the chest. COMPARISON: Chest 2 views 03/30/2019 INDICATION: Status post fall IMPRESSION: 1. Lines and Tubes: Stable left upper chest multilead cardiac device. 2. Lungs are grossly clear. No consolidation or effusion. 3. Cardiomediastinal silhouette is normal. Pulmonary vasculature is normal. 4. No acute bony abnormalities. No acute, displaced fracture or dislocation, within the limitations of this single view. Signed by: Dr. Edmundo Mario M.D. on 06/03/2019 3:09 PM
[2019-06-03] MEDS ORDERED: MORPHINE SULFATE 2 MG/ML SYR 1ML IV PRN (15:30)
[2019-06-03] MEDS ORDERED: ONDANSETRON HCL INJ 2MG/ML 2ML 2 MG/ML VIAL IV PRN (15:30)
--- NOTE | 2019-06-03 15:50 | Diagnostic Imaging Report ---
EXAMINATION: CT of left head, without contrast. TECHNIQUE: Axial spiral CT images of the left hip were performed from the iliac bone to the mid femur. No intravenous contrast was administered. Coronal and sagittal reformatted images in bone and soft tissue windows were obtained. CLINICAL HISTORY: Status post fall one week ago COMPARISON: None. FINDINGS: Comminuted displaced fracture of the left superior pubic ramus near the symphysis pubis (series 4, image 40 and coronal bone image 41). Comminuted displaced fracture of the left inferior pubic ramus with fracture displacement by approximately one shaft width) series 4, image 50). No hyperdensity is noted in the surrounding musculature to suggest acute bleeding. Visualized portions of the left acetabulum, iliac bone and left femur show no acute, displaced fracture or dislocation. Atherosclerotic calcification of the iliac vessels. No pelvic or inguinal adenopathy. Visualized bowel is unremarkable. IMPRESSION: 1. Comminuted displaced fractures of the left superior and inferior pubic rami. 2. No acetabular or proximal left femoral fracture. Signed by: Dr. Edmundo Mario M.D. on 06/03/2019 3:47 PM
--- NOTE | 2019-06-03 16:19 | NUR ---
urine collected and sent off to the lab.
--- NOTE | 2019-06-03 16:26 | Diagnostic Imaging Report ---
EXAMINATION: CT of the abdomen and pelvis without contrast. TECHNIQUE: Spiral CT images of the pelvis were performed from the iliac crests to the lesser trochanters. No intravenous contrast was given. Coronal and sagittal reformatted images were obtained. COMPARISON: None. CLINICAL HISTORY:Status post fall DISCUSSION: ABSENCE OF INTRAVENOUS CONTRAST DECREASES SENSITIVITY FOR DETECTION OF FOCAL LESIONS AND VASCULAR PATHOLOGY. PELVIS: PELVIC ORGANS/BLADDER: Bladder is unremarkable. No focal lesions or wall thickening. Uterus is absent. No adnexal masses. PERITONEUM/RETROPERITONEUM: No free air or fluid. LYMPH NODES: No distal retroperitoneal, pelvic or inguinal lymphadenopathy. VESSELS: Atherosclerotic calcification of the distal abdominal aorta and iliac vessels. GI TRACT: The visualized bowel shows no dilation or obstruction. BONES AND SOFT TISSUES: * Comminuted displaced fracture of the left superior pubic ramus near the symphysis pubis (series 3, image 69 and coronal bone window image 24). * Comminuted displaced fracture of the left inferior pubic ramus with fracture displacement by approximately one shaft width (series 3, image 79 and coronal image 38). * No other acute, displaced fractures in the pelvis. Degenerative disc changes in the lower lumbosacral spine with grade 1 anterolisthesis of L5 on S1. Marked facet hypertrophy L5-S1. Mild degenerative changes seen in the sacroiliac joints, right greater than left. Thickening of the left external and internal obturator muscles adjacent to the fractures (for example series 3, images 70 and 77), without hyperdensity to suggest acute hemorrhage. Soft tissues are otherwise unremarkable. IMPRESSION: 1. Comminuted displaced fracture of the left superior pubic ramus near the symphysis pubis 2. Comminuted displaced fracture of the left inferior pubic ramus with fracture displacement by approximately one shaft width 3. No other acute, displaced fractures in the pelvis. 4.Thickening of the left external and internal obturator muscles adjacent to the fractures which likely reflect hematomas, without hyperdensity to suggest acute hemorrhage. Signed by: Dr. Edmundo Mario M.D. on 06/03/2019 4:22 PM
[2019-06-03 16:33] LABS: BILIRUBIN,URINE NEGATIVE (NEGATIVE); CLARITY,URINE SL CLOUDY (CLEAR); COLOR,URINE YELLOW (YELLOW); KETONES,URINE NEGATIVE (NEGATIVE); LEUKOCYTE ESTERASE ,URINE TRACE (NEGATIVE); NITRITE,URINE NEGATIVE (NEGATIVE); PROTEIN,URINE DIPSTICK TRACE (NEGATIVE); URINE UROBILINOGEN 1 mg/dL (0.2 - 1)
[2019-06-03 16:55] LABS: BACTERIA,URINE MANY /HPF; EPITHELIAL CELLS,URINE FEW /LPF; RBC,URINE 0-5 /HPF (0-5)
--- NOTE | 2019-06-03 18:24 | NUR ---
Patient arrived to unit from ER. Yi speaking, AOx3, no c/o of pain or signs of distress at this time. Family at bedside. Notified of NPO after midnight status, verbalized understanding. Patient oriented to room, bed locked and in low position, call light placed within reach. Patient instructed to call for assistance if needed. Will continue to monitor.
[2019-06-03 19:00] VITALS: BP 152/74
--- NOTE | 2019-06-03 19:05 | NUR ---
Bedside report given to night nurse. Patient in stable condition.
[2019-06-03 21:00] VITALS: BP 152/74
--- NOTE | 2019-06-03 21:00 | NUR ---
INITIAL ASSESSMENT COMPLETE, CALL LIGHT IN REACH, ADMISSION COMPLETE, FAMILY AT BEDSIDE, PT BRUISING ON FACE, MORE TOWARD LEFT SIDE, SPLINT AND ROMIE ON LEFT WRIST AND FOREARM AREA DUE TO FX, PT ON BEDREST, IV INTACT, NO DISTRESS NOTED, NO PAIN NOTED AT THIS TIME, TOLD TO CALL FOR NEEDS.
[2019-06-04] VITALS (7 sets, daily range): BP systolic 125–158; BP diastolic 56–70
--- NOTE | 2019-06-04 | NUR ---
PT IN BED, NO SLEEPING, HAS TAKEN OFF SPLINT TO LEFT ARM, REAPPLIED, ASSIST TO BSC, BACK TO BED, CALL LIGHT IN REACH, BED ALARM ON, FAMILY AT BEDSIDE, PT IS CONFUSED
--- NOTE | 2019-06-04 04:00 | NUR ---
VS STABLE, PT AWAKE EASILY FOR VS, NO DISTRESS NOTED, TOLD TO CALL FOR NEEDS, CALL LIGHT IN REACH PT CONTINUES TO UNWRAP SPLINT TO LEFT FX ARM, CONTINUE TO REAPPLY, DAUGHTER AT BEDSIDE, PT CONFUSED
[2019-06-04] MEDS: SODIUM CHLORIDE 0.9% 1000ML 1,000 ML IV SCH ×2 (04:50→18:10)
[2019-06-04 05:29] LABS: BASOPHILS # (AUTO) 0.1 (0.0-0.1); BASOPHILS % 0.5 % (0.0-1.0); EOSINOPHILS # (AUTO) 0.1 (0.0-0.4); EOSINOPHILS % 1.3 % (0.0-6.0); HEMATOCRIT 33.3 % (34.2-44.1); HEMOGLOBIN 10.6 g/dL (12.0-16.0); LYMPHOCYTES % 18.8 % (18.0-39.1); MEAN CORPUSCULAR HEMOGLOBIN 30.5 pg (28-32); MEAN CORPUSCULAR HGB CONC 31.8 g/dL (31-35); MEAN CORPUSCULAR VOLUME 95.7 fL (81-99); MONOCYTES # (AUTO) 0.9 (0.2-0.8); MONOCYTES % 8.5 % (4.4-11.3); NEUTROPHILS # (AUTO) 7.4 (2.1-6.9); NEUTROPHILS % 70.1 % (38.7-80.0); PLATELET COUNT 219 x10e3/uL (140-360); RED BLOOD COUNT 3.48 x10e6/uL (3.6-5.1); RED CELL DISTRIBUTION WIDTH 13.8 % (11.7-14.4)
[2019-06-04 06:02] LABS: ALBUMIN 3.1 g/dL (3.5-5.0); ALBUMIN/GLOBULIN RATIO 0.9 (0.8-2.0); ANION GAP 15.4 mmol/L (8-16); CALCIUM 9.2 mg/dL (8.4-10.2); CREATININE, SERUM 1.32 mg/dL (0.57-1.11); POTASSIUM 4.4 mmol/L (3.5-5.1)
[2019-06-04] MEDS ORDERED: ACETAMINOPHEN 325 MG TAB PO PRN (08:45)
[2019-06-04] MEDS ORDERED: TRAMADOL HCL 50 MG TAB PO PRN (08:45)
--- NOTE | 2019-06-04 09:39 | NUR ---
EDUCATED ABOUT IMM, SIGNED, FILED IN CHART, WITH COPY LEFT WITH FAMILY AT BEDSIDE.
[2019-06-04] MEDS ORDERED: BUPIVACAINE HCL 0.5% INJ 30 ML VIAL INJ ONE (09:48)
--- NOTE | 2019-06-04 10:33 | History and Physical ---
PRIMARY CARE PHYSICIAN: Dr. Inocente Razo. CONSULTING PHYSICIAN: Dr. Vikash Mcclure. CHIEF COMPLAINT: Status post fall approximately one week ago. HISTORY OF PRESENT ILLNESS: The patient is 89-year-old female with left wrist fractures pending for surgery today. She is also found to have a comminuted displaced fracture of the left superior pubic ramus near to symphysis pubis and also on the left inferior pubic ramus with fractures displacement as well. The patient is otherwise stable. She was able to walk with severe pain. The patient is pending for left wrist surgery today with Dr. Mcclure. The patient has a very good family support. Apparently, she accidentally fell at home last Tuesday. She does have some bruises on the facial area. Otherwise, the patient is stable. PAST MEDICAL HISTORY: Osteoarthritis, levothyroxine, hypertension, functional dementia, anxiety disorder. PAST SURGICAL HISTORY: Appendectomy, hysterectomy, and permanent pacemaker. SOCIAL HISTORY: The patient does not smoke or use alcohol. No regular drugs. ALLERGIES: PENICILLIN, SULFA, CODEINE, HYDROCODONE. HOME MEDICATIONS: List is reviewed. REVIEW OF SYSTEMS: Left wrist pain, pelvic pain. PHYSICAL EXAMINATION: VITAL SIGNS: Temperature is 98, blood pressure 125/56, pulse rate 60, respirations 18. GENERAL: The patient is not in acute distress. She is awake. HEENT: Normocephalic, atraumatic. Facial bruising. NECK: Grossly supple. PULMONARY: Diminished breath sounds. CARDIOVASCULAR: Permanent pacemaker. ABDOMEN: Soft. EXTREMITIES: Left wrist brace. No edema or cyanosis. NEUROLOGIC: No gross focal deficit. Moving all extremities. LABORATORY DATA: Sodium is 139, potassium 4.4, chloride 104, bicarb 24, BUN 29, creatinine 1.3, glucose 86. WBC is 10.4, hemoglobin 10.6, hematocrit 33.3, platelets is 219. IMPRESSION: 1. Left wrist fracture. 2. Left superior rami and inferior rami displaced fractures of the pelvic bone. 3. Baseline functional dementia, ambulatory previously, dyslipidemia, hypertension, permanent pacemaker. PLAN: Continue with management of left wrist fractures. Resume home medication. We will monitor the patient closely. The limited PT, OT will depend on Dr. Mcclure recommendation on weightbearing. Discussed with the patient's family regarding discharge planning and give them option. MD TILA Jin/RICHARD /[id number]
--- NOTE | 2019-06-04 10:51 | NUR ---
ATTEMPTED TO DO DOPA AND SPEAK ABOUT SNF, PT NOT IN ROOM IN A PROCEDURE, WILL RETURN LATER
[2019-06-04] MEDS ORDERED: ONDANSETRON HCL INJ 2MG/ML 2ML 2 MG/ML VIAL IV PRN (11:00)
[2019-06-04] MEDS ORDERED: ACETAMINOPHEN 650 MG SUPP PR PRN (11:00)
[2019-06-04] MEDS ORDERED: PROMETHAZINE HCL (IM) 25 MG/ML VIAL INJ PRN (11:00)
[2019-06-04] MEDS ORDERED: DIPHENHYDRAMINE HCL INJ 50 MG/ML VIAL IM/IV PRN (11:00)
[2019-06-04] MEDS ORDERED: DOCUSATE SODIUM 100 MG CAP PO PRN (11:00)
[2019-06-04] MEDS ORDERED: ZOLPIDEM TARTRATE 5 MG TAB PO PRN (11:00)
[2019-06-04] MEDS ORDERED: KETOROLAC TROMETHAMINE 30 MG/ML VIAL IV PRN (11:00)
[2019-06-04] MEDS: ACETAMINOPHEN 1000 MG/100 ML IV SCH ×3 (12:00→23:44)
[2019-06-04] MEDS ORDERED: PROPOFOL IV EMULSION 10 MG/ML 20 ML VIAL ONE (14:29)
[2019-06-04] MEDS ORDERED: SEVOFLURANE INHAL SOLN 250 ML PEN BTL ONE (14:29)
[2019-06-04] MEDS ORDERED: LIDOCAINE HCL 2% LOCAL INJ 5 ML SDV VIAL INJ ONE (14:29)
[2019-06-04] MEDS ORDERED: FENTANYL CITRATE/PF 100MCG/2 ML INJ ONE (14:35)
[2019-06-04] MEDS: ASPIRIN 325 MG TAB PO SCH (14:56)
[2019-06-04] MEDS: LEVOTHYROXINE SODIUM 50 MCG TAB PO SCH (14:56)
[2019-06-04] MEDS: AMLODIPINE BESYLATE 10 MG TAB PO SCH (14:56)
[2019-06-04] MEDS: GABAPENTIN 300 MG CAP PO SCH (14:56)
[2019-06-04] MEDS: METOPROLOL SUCCINATE 50 MG TAB XL PO SCH (14:58)
[2019-06-04] MEDS: PAROXETINE HCL 20 MG TAB PO SCH (14:58)
--- NOTE | 2019-06-04 16:33 | Diagnostic Imaging Report ---
EXAMINATION: Head CT HISTORY: Status post fall, head pain. COMPARISON: None available TECHNIQUE: Multidetector axial images were obtained without contrast from the foramen magnum to the vertex . The images were reconstructed using brain and bone algorithms. Thin section brain images were reformatted into coronal and sagittal planes. Image quality: Motion/streaking artifact limits the evaluation of the skull base and posterior cranial fossa. Dose modulation, iterative reconstruction, and/or weight based adjustment of the mA/kV was utilized to reduce the radiation dose to as low as reasonably achievable. FINDINGS: Parenchyma: 1. Scattered and moderate confluent periventricular, san radiata and subcortical white matter hypodensities, most likely nonspecific chronic microvascular ischemic changes. 2. No mass or hemorrhage. No CT evidence of acute territorial vascular insult. Extra-axial spaces:No abnormal density. No extra-axial fluid collections Brain volume: Generalized volume loss, with particular prominence of the parietal sulci, bilateral temporal horns and bilateral hippocampal atrophy, which can be seen in patient's with Alzheimer's disease in the correct clinical setting. Ventricles: No hydrocephalus or displacement. Arteries: No density suggestive of thrombus. Dural sinuses: No abnormal density. Extra-axial spaces: No abnormal density. Foramen magnum: No mass, Chiari malformation, or basilar invagination. Sella: Very enlarged, partially empty, mostly CSF filled Paranasal/mastoid sinuses: Imaged portions unremarkable. Skull/Scalp: Left frontal scalp swelling/hematoma without underlying fractures. IMPRESSION: 1. Left frontal scalp swelling/hematoma without underlying fractures or intracranial hemorrhage. 2. Moderate chronic microvascular ischemic changes. 3. Generalized brain volume loss as detailed above. Signed by: Dr. Violet Argueta M.D. on 06/04/2019 4:29 PM
--- NOTE | 2019-06-04 17:27 | NUR ---
CM RECEIVED ORDERS FOR HH SERVICES - CM TO BEDSIDE TO DISCUSS PATIENT CHOICE FOR HOME HEALTH. SPOKE WITH PATIENT AND DAUGHTERS. CHOICE LETTER GIVEN AND THEY HAVE CHOSEN [facility] (O:[phone];F:[phone]) - CM SENT REFERRAL PACKET. CM WILL F/U ON STATUS OF ACCEPTANCE. CM SPOKE WITH JOSHRN/BEDSIDE NURSE AND NOTIFIED OF CM STARTING REFERRAL FOR HH SERVICES.
[2019-06-04] MEDS: ENOXAPARIN 30 MG/0.3 ML SYR SC SCH (17:38)
[2019-06-04] MEDS: CELECOXIB 200 MG CAP PO SCH (17:38)
--- NOTE | 2019-06-04 18:55 | Operative Report ---
DATE OF PROCEDURE: 06/04/2019 SURGEON: Vikash Mcclure MD POWERSAW SUPERVISOR: Gerardo Schroeder, certified PA. PREOPERATIVE DIAGNOSIS: Other extra-articular fracture of the left distal radius. POSTOPERATIVE DIAGNOSIS: Other extra-articular fracture of the left distal radius. PROCEDURE: Closed reduction and percutaneous pin fixation, left distal radius. INDICATIONS: The patient is an 89-year-old lady, who fell while traveling in [place]. She sustained a pelvic rami fracture and a displaced left distal radius fracture. The findings and options were discussed with the patient and her family when she presented to my clinic about a week later. The patient and her family did not want to accept the clinical deformity. I recommended closed reduction and percutaneous pin fixation. The risks and benefits were explained. They state they understand and wished to proceed. PROCEDURE IN DETAIL: The patient was brought to the operating room and placed under general anesthetic. A preoperative time-out was performed. Her left upper extremity was prepped and draped in a sterile manner. A closed reduction was performed. Near anatomic reduction was confirmed with a C-arm image intensifier. Two 0.062 K-wires were then placed from the radial styloid into the shaft of the radius. Dramatic improvement in the clinical alignment of the distal radius was improved. The pins were cut short and capped. She was placed into a sterile bandage and a sugar-tong splint. Final x-rays were obtained. She was extubated and transported to the recovery room in stable condition. There was no blood loss and all needle and sponge counts were correct. Vikash Mcclure MD DR/RICHARD /[id number]
--- NOTE | 2019-06-04 19:00 | NUR ---
HANDOFF REPORT TO ONCOMING NURSE, MADE AWARE TO SALINE LOCK WHEN PATIENT TOLERATING PO, PER DR. SPARKS'S ORDERS.
--- NOTE | 2019-06-04 19:00 | NUR ---
received report from day nurse. patient is resting comfortably in bed. bed is in lowest position and call light is within reach. will continue to monitor patient.
[2019-06-04] MEDS: DONEPEZIL HCL 5 MG TAB PO SCH (21:23)
[2019-06-05] VITALS (8 sets, daily range): BP systolic 117–171; BP diastolic 57–73
[2019-06-05] MEDS: ACETAMINOPHEN 1000 MG/100 ML IV SCH (05:18)
[2019-06-05] MEDS: LEVOTHYROXINE SODIUM 50 MCG TAB PO SCH (05:19)
[2019-06-05 06:03] LABS: BASOPHILS % 0.1 % (0.0-1.0); HEMATOCRIT 29.9 % (34.2-44.1); HEMOGLOBIN 9.5 g/dL (12.0-16.0); LYMPHOCYTES # (AUTO) 1.7 (1.0-3.2); LYMPHOCYTES % 18.2 % (18.0-39.1); MEAN CORPUSCULAR HEMOGLOBIN 30.4 pg (28-32); MEAN CORPUSCULAR HGB CONC 31.8 g/dL (31-35); MEAN CORPUSCULAR VOLUME 95.5 fL (81-99); MONOCYTES # (AUTO) 0.6 (0.2-0.8); NEUTROPHILS # (AUTO) 6.7 (2.1-6.9); NEUTROPHILS % 73.7 % (38.7-80.0); PLATELET COUNT 211 x10e3/uL (140-360); RED BLOOD COUNT 3.13 x10e6/uL (3.6-5.1); RED CELL DISTRIBUTION WIDTH 13.6 % (11.7-14.4)
--- NOTE | 2019-06-05 06:10 | NUR ---
Patient's IV has infiltrated. A 24g IV has been started on patients right upper arm.
[2019-06-05 06:24] LABS: ANION GAP 9.6 mmol/L (8-16); CREATININE, SERUM 1.42 mg/dL (0.57-1.11); POTASSIUM 4.6 mmol/L (3.5-5.1)
--- NOTE | 2019-06-05 06:39 | NUR ---
report given to day nurse. patient is resting comfortably in bed. bed is in lowest position and call osorio is within reach.
--- NOTE | 2019-06-05 07:12 | NUR ---
pt alert resp even and unlabored pt easily aroused to name and touch, pt able to make needs known, call light in reach pt has no c/o pain when asked, family member att bedside, will cont to monitor.
[2019-06-05] MEDS: SODIUM CHLORIDE 0.9% 1000ML 1,000 ML IV SCH ×2 (07:30→20:50)
--- NOTE | 2019-06-05 08:19 | NUR ---
SPOKE WITH FAMILY THEY LIVE OFF OF [facility] AND [facility], PHONE [phone] FAX [phone]
[2019-06-05] MEDS: GABAPENTIN 300 MG CAP PO SCH (09:43)
[2019-06-05] MEDS: ASPIRIN 325 MG TAB PO SCH ×2 (09:43→17:00)
[2019-06-05] MEDS: CELECOXIB 200 MG CAP PO SCH ×2 (09:43→18:20)
[2019-06-05] MEDS: PAROXETINE HCL 20 MG TAB PO SCH (09:44)
[2019-06-05] MEDS: AMLODIPINE BESYLATE 10 MG TAB PO SCH (09:44)
[2019-06-05] MEDS: METOPROLOL SUCCINATE 50 MG TAB XL PO SCH (09:44)
[2019-06-05] MEDS ORDERED: ACETAMINOPHEN 1000 MG/100 ML IV PRN (11:00)
[2019-06-05] MEDS: CEPHALEXIN 500 MG CAP PO SCH ×2 (14:28→21:35)
--- NOTE | 2019-06-05 16:20 | NUR ---
ACCEPTED TO ROOM 316 A UNDER CARE OF EVELIO, LET NURSE KNOW AND COMPETED RTF FOR TRANSFER.
--- NOTE | 2019-06-05 16:40 | NUR ---
report given to Wanda at [facility],pt going to 316a.
[2019-06-05] MEDS: ENOXAPARIN 30 MG/0.3 ML SYR SC SCH (17:00)
--- NOTE | 2019-06-05 19:00 | NUR ---
RECEIVED PATIENT IN BEDSIDE REPORT. FAMILY MEMBERS AT BEDSIDE. PATIENT REPORTS NO PAIN AT THIS TIME. NO S&S OF DISTRESS NOTED. BED LOCKED IN LOWEST POSITION, SIDE RAILS UPX2, CALL LIGHT IN REACH.
--- NOTE | 2019-06-05 19:47 | NUR ---
report given to oncoming nurse, pt stable.
[2019-06-05] MEDS: DONEPEZIL HCL 5 MG TAB PO SCH (21:35)
[2019-06-06] VITALS: BP 111/53
[2019-06-06 04:00] VITALS: BP 120/58
--- NOTE | 2019-06-06 05:10 | NUR ---
PATIENT AMBULATED TO RESTROOM WITH FAMILY MEMBER ASSIST AND STAFF STANDBY. SLOW AND STEADY GAIT NOTED. NO PAIN REPORTED. NO S&S OF DISTRESS. PATIENT ASSISTED BACK TO BED. BED LOCKED IN LOWEST POSITION, SIDE RAILS UPX2, CALL LIGHT IN REACH, BED ALARM ON.
--- NOTE | 2019-06-06 07:07 | NUR ---
received patient lying in bed with eyes closed, Resp even and unlabored. no c/o pain at this time. daughter at bedside. call light within reach.
[2019-06-06] MEDS: LEVOTHYROXINE SODIUM 50 MCG TAB PO SCH (07:14)
[2019-06-06] MEDS: CEPHALEXIN 500 MG CAP PO SCH (07:14)
[2019-06-06 07:34] VITALS: BP 125/58
[2019-06-06 08:17] VITALS: BP 125/58
--- NOTE | 2019-06-06 08:45 | NUR ---
PT DECLINED SNF PLACEMENT, STATES WANTS TO GO HOME WITH HOME HEALTH. CALLED [facility] AND SPOKE WITH MARGARITA AT THE [place] OFFICE [phone] SHE STATES SHE CANNOT GET APPROVAL FOR AT LEAST 14 TO 20 DAYS FROM [employer], CALLED JEFFERY SHORE AT [employer], SHE STATES THAT IS NOT TRUE, AND GAVE OPTIONS OF [facility] [phone] EXPLAINED TO PATIENT DAUGHTER AND SHE STATES THAT IS OK, FAXED CLINICALS TO [phone], CALLED AND SPOKE WITH MARLYN SHE HAS CONFIRMED RECEIPT OF CLINICALS AND WILL PUT PT ON ROTATION TO BE SEEN, SHE WILL CALL DAUGHTER TO SET UP TIME TO COME TO HOME FOR EVALUATION.
[2019-06-06] MEDS: CELECOXIB 200 MG CAP PO SCH (09:12)
[2019-06-06] MEDS: PAROXETINE HCL 20 MG TAB PO SCH (09:12)
[2019-06-06] MEDS: GABAPENTIN 300 MG CAP PO SCH (09:12)
[2019-06-06] MEDS: ASPIRIN 325 MG TAB PO SCH (09:12)
[2019-06-06] MEDS: AMLODIPINE BESYLATE 10 MG TAB PO SCH (09:12)
[2019-06-06] MEDS: METOPROLOL SUCCINATE 50 MG TAB XL PO SCH (09:13)
[2019-06-06] MEDS ORDERED: ONDANSETRON HCL 4 MG ORAL DISINTEGRATING TAB PO PRN (09:30)
[2019-06-06] MEDS: SODIUM CHLORIDE 0.9% 1000ML 1,000 ML IV SCH (10:10)
--- NOTE | 2019-06-06 11:10 | NUR ---
EDUCATED ABOUT IMM, SIGNED, FILED IN CHART, WITH COPY LEFT WITH FAMILY AT BEDSIDE.
[2019-06-06 12:00] VITALS: BP 129/56
--- NOTE | 2019-06-06 12:30 | NUR ---
Patient is discharge to home. Transported via wheelchair to private vehicle with daughter. Respiration even and unlabored without SOB.
--- NOTE | 2019-06-06 20:47 | Discharge Summary ---
PRIMARY CARE PHYSICIAN: Dr. Raul Razo. HORSE TREKKING GUIDE: Vikash Mcclure MD. FINAL DIAGNOSES: 1. Status post left wrist fracture, status post closed reduction and percutaneous pinning left distal radius surgical intervention by Dr. Vikash Mcclure. Procedure was done on June 04, 2019. 2. Status post fall with comminuted displaced fracture of the left superior pubic ramus and left inferior pubic ramus with fracture displacement. 3. Baseline hypertension, dementia, and osteoarthritis. SUMMARY: An 89-year-old female, who fell few weeks ago having increase in ambulatory problem due to pain. She was supposed to have left wrist surgery, but the day prior, her pain was quite severe where she came to the hospital for pain management. The patient is also having problem with walking. Overall, the patient is stable. [facility] evaluated and accepted, but the patient now is not going due to the family refused and they want to take the patient home instead. Arrangement for home health for physical therapy is done. The patient to follow up with Dr. Mcclure as an outpatient for her postop care. With respect to her left pelvic bone fractures, the patient continue with pain control. She continue with tramadol. For sleep, trazodone 25 mg at bedtime. Mobic 7.5 mg twice a day for pain. Keflex 5 mg 3 times a day for 5 days. The patient is stable and discharged home. Follow up with primary care physician within a week. MD TILA Jin/MODL /[id number]
== END 2019-06-06 12:30 | disposition home health service (06) | DRG 511 ==
LOC: ER 12:56 → ERHOLD 15:42 → MED/SURG 18:01
PROVIDERS: ADMIT Internal Medicine; ATTEND Internal Medicine
PROC: 0PSJ34Z Reposition Left Radius with Internal Fixation Device, Percutaneous Approach (ICD-10-PCS; principal; 2019-06-04 10:00)
DX: S52.502A Unspecified fracture of the lower end of left radius, initial encounter for closed fracture (principal); S32.592A Other specified fracture of left pubis, initial encounter for closed fracture; F03.90 Unspecified dementia, unspecified severity, without behavioral disturbance, psychotic disturbance, mood disturbance, and anxiety; I10 Essential (primary) hypertension; M19.90 Unspecified osteoarthritis, unspecified site; W19.XXXA Unspecified fall, initial encounter; E78.5 Hyperlipidemia, unspecified; Z95.0 Presence of cardiac pacemaker; S73.102A Unspecified sprain of left hip, initial encounter
CPT/HCPCS: 36415; 70450; 71045; 72192; 76000; 80048; 80053; 81001; 82550; 82553; 84484; 85025; 85610; 85730; 87086; 87186; 93005; 97139; 99284; C1713; J1650; J2001; J3010; J7030

== ENCOUNTER 2019-09-24 13:21 | Observation (INO) | payer OTHER ==
[~2019-09-24] VITALS: Ht 152.4 cm; Wt 55.5 kg
[2019-09-24 14:27] LABS: CLARITY,URINE HAZY (CLEAR); COLOR,URINE YELLOW (YELLOW); URINE UROBILINOGEN 0.2 mg/dL (0.2 - 1)
[2019-09-24 14:28] LABS: BILIRUBIN,URINE NEGATIVE (NEGATIVE); KETONES,URINE NEGATIVE (NEGATIVE); NITRITE,URINE NEGATIVE (NEGATIVE); PROTEIN,URINE DIPSTICK NEGATIVE (NEGATIVE)
[2019-09-24 14:29] LABS: LEUKOCYTE ESTERASE ,URINE TRACE (NEGATIVE)
[2019-09-24 14:31] LABS: INR 0.88; PROTHROMBIN TIME 12.4 seconds (11.9-14.5)
[2019-09-24 14:32] LABS: PARTIAL THROMBOPLASTIN TIME 25.5 seconds (23.8-35.5)
[2019-09-24 14:37] LABS: BASOPHILS # (AUTO) 0.1 (0.0-0.1); BASOPHILS % 0.9 % (0.0-1.0); EOSINOPHILS # (AUTO) 0.1 (0.0-0.4); EOSINOPHILS % 1.5 % (0.0-6.0); HEMATOCRIT 45.2 % (34.2-44.1); HEMOGLOBIN 14.3 g/dL (12.0-16.0); LYMPHOCYTES # (AUTO) 2.5 (1.0-3.2); LYMPHOCYTES % 32.5 % (18.0-39.1); MEAN CORPUSCULAR HEMOGLOBIN 29.3 pg (28-32); MEAN CORPUSCULAR HGB CONC 31.6 g/dL (31-35); MEAN CORPUSCULAR VOLUME 92.6 fL (81-99); MONOCYTES # (AUTO) 0.5 (0.2-0.8); MONOCYTES % 6.8 % (4.4-11.3); NEUTROPHILS # (AUTO) 4.4 (2.1-6.9); NEUTROPHILS % 56.8 % (38.7-80.0); PLATELET COUNT 269 x10e3/uL (140-360); RED BLOOD COUNT 4.88 x10e6/uL (3.6-5.1)
[2019-09-24 14:40] LABS: BACTERIA,URINE MODERATE /HPF; EPITHELIAL CELLS,URINE MODERATE /LPF; HYALINE CASTS 0-1 (0-1); TRANSITIONAL EPI CELLS,URINE FEW; WBC,URINE (MAN) 0-5 /HPF (0-5)
[2019-09-24 14:41] LABS: ALBUMIN 3.4 g/dL (3.5-5.0); ALBUMIN/GLOBULIN RATIO 0.8 (0.8-2.0); AMORPHOUS SEDIMENT,URINE FEW (FEW); ANION GAP 18.2 mmol/L (8-16); CALCIUM 9.9 mg/dL (8.4-10.2); CREATININE, SERUM 1.81 mg/dL (0.57-1.11); POTASSIUM 4.2 mmol/L (3.5-5.1)
[2019-09-24 14:47] LABS: CREATINE KINASE MB 1.5 ng/mL (0-5.0)
--- NOTE | 2019-09-24 15:20 | Diagnostic Imaging Report ---
EXAMINATION: CHEST SINGLE (NOT PORTABLE) INDICATION: Chest pain. COMPARISON: Chest radiograph 06/03/2019. FINDINGS: TUBES and LINES: Left sided pacemaker with leads overlying the right atrium and right ventricle. LUNGS: Mild patchy left basilar opacity, likely atelectasis. There is no evidence of lobar pneumonia or pulmonary edema. PLEURA: No pleural effusion or pneumothorax. HEART AND MEDIASTINUM: The cardiomediastinal silhouette is unremarkable. There are atherosclerotic calcifications within the aorta. BONES AND SOFT TISSUES: No acute osseous abnormality. UPPER ABDOMEN: No free air under the diaphragm. IMPRESSION: No acute radiographic abnormality. Signed by: Dr. Shazia Randall MD on 09/24/2019 3:17 PM
[2019-09-24] MEDS ORDERED: ASPIRIN 81 MG CHEW TAB PO ONE (15:45)
[2019-09-24] MEDS ORDERED: ONDANSETRON HCL INJ 2MG/ML 2ML 2 MG/ML VIAL IV PRN (15:45)
[2019-09-24] MEDS ORDERED: SODIUM CHLORIDE FLUSH 10 ML SYR INJ PRN (15:45)
--- NOTE | 2019-09-24 17:33 | NUR ---
Pacemaker- [employer] Physician: Viktor Lino MD Physician phone: [phone] [facility] [place] Product Model/Serial Implant DT [place] Sci Pacemaker [id number]/ [id number] 09-Aug-2013 [employer] Lead [id number] 09-Aug-2013 [employer] Lead [id number] 09-Aug-2013 Phone number to contact:
--- NOTE | 2019-09-24 18:30 | NUR ---
RECEIVED PT FROM ER. NATALEE3. FAMILY MEMBER AT BEDSIDE. EDUCATED PT ABOUT FALL PRECAUTIONS. CALL LIGHT WITH IN EASY REACH. INSTRUCTED PT TO USE CALL LIGHT FOR ALL THE NEEDS. PT VERBALIZED UNDERSTANDING. SIDE RAILS X2. BED IS LOW AND LOCKED. PT DENIES NEEDS AT THIS TIME.
--- NOTE | 2019-09-24 19:00 | NUR ---
BEDSIDE SHIFT REPORT GIVEN TO THE SHEEP OR CALF GRADER RN. PT DENIED FURTHER NEEDS.
[2019-09-24 20:00] VITALS: BP 131/60
[2019-09-24 22:00] VITALS: BP 131/60
[2019-09-24 22:38] LABS: CREATINE KINASE MB 1.5 ng/mL (0-5.0)
[2019-09-24 22:46] VITALS: BP 131/60
[2019-09-24] MEDS ORDERED: ACETAMINOPHEN 325 MG TAB PO PRN (23:15)
[2019-09-25] VITALS: BP 112/56
[2019-09-25 04:00] VITALS: BP 115/57
[2019-09-25 05:06] LABS: BASOPHILS # (AUTO) 0.1 (0.0-0.1); BASOPHILS % 0.9 % (0.0-1.0); EOSINOPHILS # (AUTO) 0.2 (0.0-0.4); EOSINOPHILS % 2.7 % (0.0-6.0); HEMOGLOBIN 11.5 g/dL (12.0-16.0); LYMPHOCYTES # (AUTO) 2.4 (1.0-3.2); LYMPHOCYTES % 36.2 % (18.0-39.1); MEAN CORPUSCULAR HEMOGLOBIN 29.3 pg (28-32); MEAN CORPUSCULAR HGB CONC 31.1 g/dL (31-35); MEAN CORPUSCULAR VOLUME 94.1 fL (81-99); MONOCYTES # (AUTO) 0.5 (0.2-0.8); MONOCYTES % 6.9 % (4.4-11.3); NEUTROPHILS # (AUTO) 3.5 (2.1-6.9); NEUTROPHILS % 52.4 % (38.7-80.0); PLATELET COUNT 241 x10e3/uL (140-360); RED BLOOD COUNT 3.93 x10e6/uL (3.6-5.1); RED CELL DISTRIBUTION WIDTH 13.7 % (11.7-14.4)
[2019-09-25 05:21] LABS: CALCIUM 9.5 mg/dL (8.4-10.2); CREATININE, SERUM 1.56 mg/dL (0.57-1.11)
[2019-09-25 06:55] LABS: CREATINE KINASE MB 1.3 ng/mL (0-5.0)
--- NOTE | 2019-09-25 07:00 | NUR ---
BEDSIDE SHIFT REPORT RECEIVED FROM THE CAR TRIMMER RN. EDUCATED PT ABOUT FALL PRECAUTIONS. CALL LIGHT WITH IN EASY REACH. INSTRUCTED PT TO USE CALL LIGHT FOR ALL THE NEEDS. PT VERBALIZED UNDERSTANDING. BED IS LOW AND LOCKED. BED ALARM IS ON. SIDE RAILS X2. FAMILY MEMBER AT BEDSIDE. PT DENIES NEEDS AT THIS TIME.
[2019-09-25 08:01] VITALS: BP 130/60
[2019-09-25 08:51] VITALS: BP 130/60
[2019-09-25] MEDS ORDERED: ASPIRIN 81 MG ENTERIC COATED PO SCH (09:00)
--- NOTE | 2019-09-25 09:35 | NUR ---
DR. BULLOCK AT BEDSIDE.
--- NOTE | 2019-09-25 10:00 | NUR ---
EKG RESULT INFORMED DR. BULLOCK. D/C PT NO NEW RX PER DR. BULLOCK.
--- NOTE | 2019-09-25 10:03 | Diagnostic Imaging Report ---
EXAM: CHEST SINGLE (PORTABLE) DATE: 09/25/2019 7:00 AM INDICATION: Chest pain COMPARISON: 09/24/2019 FINDINGS: Dual lead left-sided pacing device identified in stable position. There is stable minimal elevation of the right hemidiaphragm. The trachea is midline. There are mild bibasilar opacities suggestive of atelectasis. There is no evidence for large focal consolidation, pneumothorax, or significant pleural effusion. The cardiomediastinal silhouette is stable in appearance. No acute osseous abnormality is identified. IMPRESSION: No acute cardiopulmonary process identified. Signed by: Dr. Dawson Jarrett MD on 09/25/2019 10:00 AM
--- NOTE | 2019-09-25 10:30 | NUR ---
PT DISCHARGED HOME SAFELY WITH FAMILY. PT ESCORTED VIA WHEEL CHAIR TO THE PRIVATE AUTO AT THE FRONT ENTRANCE.TELE AND IV REMOVED. TIP INTACT. DRESSING APPLIED. PT DENIED FURTHER NEEDS.
--- NOTE | 2019-09-25 19:10 | Discharge Summary ---
PRIMARY CARE PHYSICIAN: Dr. Raul Razo. FINAL DIAGNOSES: 1. Dehydration. 2. 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 SUMMARY: The patient is an 89-year-old female with a left side permanent pacemaker placed about 6 years ago. She has baseline, has progressive weight loss. There was a in the family. Apparently, she was found to have weakness and developed some dizziness, and overall a generalized decline. EMS was called. The patient did not have any chest pain, but she does have dementia. Cardiac enzyme was pretty much negative. Blood work found to be slightly dehydrated. The patient did receive rehydration. The patient was also on Lasix at home. Discussed with the patient's daughter to encourage the patient to have more oral intake. May hold off the potassium and Lasix until patient is eating more. Otherwise, the patient is stable. She will be able to go home today. Resume home medication. Follow up as an outpatient with Dr. Raul Razo for any adjustment of medication. MD TILA Jin/MODL /[id number]
== END 2019-09-25 10:46 | disposition home or self-care (01) ==
LOC: ER 13:21 → ERHOLD 15:42 → MED/SURG2 18:49
PROVIDERS: ADMIT Internal Medicine; ATTEND Internal Medicine
DX: G30.9 Alzheimer's disease, unspecified (principal); F02.80 Dementia in other diseases classified elsewhere, unspecified severity, without behavioral disturbance, psychotic disturbance, mood disturbance, and anxiety; R63.4 Abnormal weight loss; Z68.23 Body mass index [BMI] 23.0-23.9, adult
CPT/HCPCS: 36415 ×2; 71045 ×2; 80048; 80053; 81001; 82550 ×2; 82553 ×2; 83880; 84484 ×2; 85025 ×2; 85610; 85730; 93005 ×2; 99284; G0378 ×2

== ENCOUNTER 2021-01-01 08:12 | Emergency (ER) | payer OTHER ==
[~2021-01-01] VITALS: Ht 152.4 cm; Wt 55.3 kg
[2021-01-01] MEDS ORDERED: SODIUM CHLORIDE 0.9% 1000ML 1,000 ML IV STA (08:17)
[2021-01-01 08:40] LABS: BASOPHILS # (AUTO) 0.1 (0.0-0.1); BASOPHILS % 0.7 % (0.0-1.0); EOSINOPHILS # (AUTO) 0.4 (0.0-0.4); HEMATOCRIT 42.3 % (34.2-44.1); HEMOGLOBIN 13.1 g/dL (12.0-16.0); LYMPHOCYTES # (AUTO) 2.3 (1.0-3.2); MEAN CORPUSCULAR HEMOGLOBIN 29.2 pg (28-32); MEAN CORPUSCULAR VOLUME 94.2 fL (81-99); MONOCYTES # (AUTO) 0.5 (0.2-0.8); MONOCYTES % 5.6 % (4.4-11.3); NEUTROPHILS # (AUTO) 5.6 (2.1-6.9); NEUTROPHILS % 63.4 % (38.7-80.0); PLATELET COUNT 193 x10e3/uL (140-360); RED BLOOD COUNT 4.49 x10e6/uL (3.6-5.1); RED CELL DISTRIBUTION WIDTH 13.6 % (11.7-14.4)
[2021-01-01 09:01] LABS: ALBUMIN 3.9 g/dL (3.5-5.0); ANION GAP 15.7 mmol/L (8-16); CALCIUM 9.4 mg/dL (8.4-10.2); CREATININE, SERUM 1.43 mg/dL (0.57-1.11); POTASSIUM 4.7 mmol/L (3.5-5.1)
[2021-01-01 09:07] LABS: CREATINE KINASE MB 3.6 ng/mL (0-5.0)
[2021-01-01] MEDS ORDERED: TRAMADOL HCL 50 MG TAB PO STA (10:18)
[2021-01-01] MEDS ORDERED: ULTRAM 50MG50 MG PO (10:26)
[2021-01-01 10:42] VITALS: BP 167/65
== END 2021-01-01 10:44 | disposition home or self-care (01) ==
LOC: ER 08:18
DX: S02.2XXA Fracture of nasal bones, initial encounter for closed fracture (principal); W19.XXXA Unspecified fall, initial encounter; Y92.008 Other place in unspecified non-institutional (private) residence as the place of occurrence of the external cause; G30.9 Alzheimer's disease, unspecified; F02.80 Dementia in other diseases classified elsewhere, unspecified severity, without behavioral disturbance, psychotic disturbance, mood disturbance, and anxiety; I10 Essential (primary) hypertension; E78.5 Hyperlipidemia, unspecified; E03.9 Hypothyroidism, unspecified
CPT/HCPCS: 36415; 70450; 70486; 71045; 72125; 80053; 82550; 82553; 84484; 85025; 93005; 99283; J7030